=== PATIENT | male | born 1960 | race Caucasian/White ===

== ENCOUNTER 2018-03-25 08:23 | Outpatient (CLI) | payer OTHER | END 2018-03-25 08:24 | disposition home or self-care (01) | LOC: DTY/OP 08:23 | PROVIDERS: ATTEND Surgery | DX: G47.30 Sleep apnea, unspecified (principal); E11.9 Type 2 diabetes mellitus without complications; I10 Essential (primary) hypertension | CPT/HCPCS: 97802 ==

== ENCOUNTER 2018-04-04 15:36 | Outpatient (CLI) | payer OTHER ==
[2018-04-04 16:36] LABS: #Eosinphils 0.1 thou/uL (0.0-0.7); #Lymphocytes 2.1 thou/uL (1.20-3.40); #Monocytes 0.9 thou/uL (0.11-0.59); #Neutrophils 10.4 thou/uL (1.40-6.50); %Basophils 0.3 % (0.0-1.0); %Eosinophils 0.5 % (0.0-10.0); %Lymphocytes 15.8 % (21.0-51.0); %Monocytes 6.4 % (0.0-10.0); Hemoglobin 14.3 g/dL (14.0-18.0); Mean Corpuscular HGB CONC 32.7 g/dL (32.0-36.0); Mean Corpuscular Hemoglobin 29.8 pg (27.0-31.0); Mean Corpuscular Volume 91.1 fL (78.0-98.0); Mean Platelet Volume 7.2 fL (7.4-10.4); Platelet Count 289 thou/uL (130-400); Red Blood Cell (RBC) Count 4.79 mill/uL (4.70-6.10); White Blood Cell (WBC) Count 13.5 thou/uL (4.8-10.8)
[2018-04-04 16:48] LABS: Hemoglobin A1c 6.9 % (4.0-6.0)
[2018-04-04 17:00] LABS: ALT (SGPT) 34 U/L (8-55); AST (SGOT) 24 U/L (5-34); Albumin 4.2 g/dL (3.5-5.0); Alkaline Phosphatase 42 U/L (40-150); Anion Gap 14 mmol/L (10-20); BUN (Urea Nitrogen) 48 mg/dL (8.4-25.7); Bilirubin, Direct 0.2 mg/dL (0.1-0.3); Bilirubin, Total 0.4 mg/dL (0.2-1.2); Calc. Creatinine Clearance 0 mL/min (70-130); Calcium 10.1 mg/dL (7.8-10.44); Carbon Dioxide 24 mmol/L (22-29); Chloride 104 mmol/L (98-107); Estimated GFR-MDRD 62; Globulin 3.2 g/dL (2.4-3.5); Glucose 110 mg/dL (70-105); Potassium 4.3 mmol/L (3.5-5.1); Protein, Total 7.4 g/dL (6.0-8.3); Sodium 138 mmol/L (136-145)
--- NOTE | 2018-04-04 18:34 | RAD ---
PA AND LATERAL CHEST X-RAY: 04/04/2018 HISTORY: Preoperative evaluation. FINDINGS: The cardiac silhouette is borderline enlarged. The pulmonary vasculature is within normal limits. T here is mild elevation of the right hemidiaphragm. The lungs are clear. The osseous structures are intact. IMPRESSION: 1. No acute cardiopulmonary process. 2. Borderline cardiomegaly. POS: [facility]
== END 2018-04-04 15:37 | disposition home or self-care (01) ==
LOC: LABBT 15:36
PROVIDERS: ATTEND Surgery
DX: Z01.818 Encounter for other preprocedural examination (principal); E66.01 Morbid (severe) obesity due to excess calories
CPT/HCPCS: 71046; 80053; 80076; 83036; 85025; 93005; 93010

== ENCOUNTER 2018-04-14 09:03 | Inpatient (IN) | payer OTHER ==
[2018-04-04 15:59] VITALS: BMI 46.2
[2018-04-14] MEDS ORDERED: Heparin 5,000 UNITS/ML VIAL ONE (09:48)
[2018-04-14] MEDS ORDERED: CEFAZOLIN/Water 2 GM/20 ML SYRINGE ONE (09:48)
[2018-04-14] MEDS ORDERED: Ondansetron HCl/PF 4 MG/2 ML Vial ONE (11:30)
[2018-04-14] MEDS ORDERED: Lidocaine 1% PF 5 ML VIAL ONE (11:30)
[2018-04-14] MEDS ORDERED: Dexamethasone 20 MG/5 ML VIAL ONE (11:30)
[2018-04-14] MEDS ORDERED: Glycopyrrolate 0.2 MG/ML 5 ML SYRINGE ONE (11:30)
[2018-04-14] MEDS ORDERED: PROPOFOL 200 MG/20 ML VIAL ONE (11:30)
[2018-04-14] MEDS ORDERED: Ketorolac Tromethamine 30 MG/ML VIAL ONE (11:30)
[2018-04-14] MEDS ORDERED: Midazolam HCl 2 mg/2 ml Vial ONE (11:35)
[2018-04-14] MEDS ORDERED: Bupivacaine/Epinephrine 0.25% 30 ML VIAL ONE (11:51)
[2018-04-14] MEDS ORDERED: HYDROmorphone 2 MG/ML VIAL ONE (11:52)
[2018-04-14] MEDS ORDERED: Fentanyl 100 MCG/2 ML VIAL ONE ×2 (11:52→13:41)
[2018-04-14] MEDS ORDERED: Promethazine HCl 25 MG/ML VIAL SLOW IVP PRN (13:30)
[2018-04-14] MEDS ORDERED: Promethazine HCl 25 MG/ML VIAL IM PRN ×3 (13:30→14:59)
[2018-04-14] MEDS ORDERED: Ondansetron HCl/PF 4 MG/2 ML Vial IVP PRN ×3 (13:30→14:59)
[2018-04-14] MEDS ORDERED: HYDROmorphone 2 MG/ML VIAL SLOW IVP PRN (13:30)
[2018-04-14] MEDS ORDERED: PACU-Morphine 4MG/ML VIAL SLOW IVP PRN (13:30)
[2018-04-14] MEDS ORDERED: diphenhydrAMINE 25 MG CAP PO PRN (13:38)
[2018-04-14] MEDS ORDERED: fentaNYL Citrate/PF 2,000 MCG in Sodium Chloride 0.9% 60 ML IV PRN (13:38)
[2018-04-14] MEDS ORDERED: diphenhydrAMINE 50 MG/ML VIAL IVP PRN ×2 (13:38→14:59)
[2018-04-14] MEDS ORDERED: Zolpidem Tartrate 5 MG TAB PO PRN (13:38)
[2018-04-14] MEDS ORDERED: diphenhydrAMINE 50 MG/ML VIAL IM PRN (13:38)
[2018-04-14] MEDS ORDERED: Naloxone HCl 0.4 mg/ml Vial IV PRN (13:38)
[2018-04-14] MEDS ORDERED: Communication Order-Pharmacy FS SCH (13:45)
--- NOTE | 2018-04-14 13:54 | OP ---
DATE OF PROCEDURE: 04/14/2018 PREOPERATIVE DIAGNOSES: 1. Morbid obesity with body mass index of 47. 2. Diabetes mellitus type 2. 3. Hypertension. POSTOPERATIVE DIAGNOSES: 1. Morbid obesity with body mass index of 47. 2. Diabetes mellitus type 2. 3. Hypertension. PROCEDURE: 1. Laparoscopic sleeve gastrectomy with [place] staple line reinforcements and 38 [place] bougie. 2. EGD. SURGEON: Edis Rodriguez M.D. ANESTHESIA: General. ESTIMATED BLOOD LOSS: Minimal. COMPLICATIONS: None. SPECIMEN: Stomach. FINDINGS: Normal postoperative EGD. TECHNIQUE: The patient was taken to the operating room and placed supine on the table. After genera l anesthetic was obtained, the arms, legs were double strapped to bariatric table. His abdomen were shaved, prepped, and draped in a sterile fashion. Left subcostal 5-mm Optiview trocar was placed in the usual fashion, high flow pneumoperitoneum was obtained. Left and right abdominal 12-mm ports as well as a right subcostal 5 mm port were placed under direct visualization. A 5 mm incision was made at the xiphoid and Jamila was used to raise the liver off the GE junction. Short gastrics were t aken down mid body of stomach to the left leann of the diaphragm. Left leann, angle of His, fundus is completely dissected. Short gastrics were taken at a distance of 6 cm proximal to the pylorus. OG t ube was removed and 38 bougie was brought in and its tip left in the antrum of the stomach. Multiple loads of an [place] stapling device with [place] staple and reinforcements used to form the sleeve. Th e first fired to a distance 6 cm proximal to the pylorus angled up towards the incisura. Multiple lo ads then fired up along the bougie and stomach is completely transected at the angle of His. The sto mach was removed from left abdominal incision. This fascial defect was closed GraNee needle 0 Vicryl tie. EGD scope was passed into the esophagus, stomach to the level of duodenum without obstruction. There is no air leakage or bleeding on the staple line. EGD scope was used to compress it was pull ed and removed. There is no bleeding on the staple line and Nathansen removed under direct visualiza tion without bleeding. Both 12-mm port sites were closed in the fascia using GraNee needle 0 Vicryl tie. All ports are removed under camera visualization without bleeding. The pneumoperitoneum was le t down. All incisions were irrigated and closed using 4-0 Monocryl and Dermabond. The patient went to recovery in stable condition. All instrument counts, needle counts, lap counts were correct.
[2018-04-14] MEDS ORDERED: Hydrocodone-Acetamin 15 ML UDCUP PO PRN (14:59)
[2018-04-14] MEDS ORDERED: Dextrose 5% in Water 1,000 ML IV PRN (14:59)
[2018-04-14] MEDS ORDERED: Dextrose 50% Abboject 50 ML SYRINGE SLOW IVP PRN (14:59)
[2018-04-14] MEDS ORDERED: Acetaminophen 1,000 MG in Premix Bag 1 BAG IVPB SCH (14:59)
[2018-04-14] MEDS ORDERED: hydrALAZINE 20 MG/ML VIAL SLOW IVP PRN (14:59)
[2018-04-14] MEDS ORDERED: HumaLOG 300 UNITS/3 ML VIAL SC PRN (14:59)
[2018-04-14] MEDS: Ketorolac Tromethamine 30 MG/ML VIAL IVP SCH (18:41)
[2018-04-14] MEDS: Acetaminophen 1,000 MG in Premix Bag 1 BAG IVPB SCH (18:41)
[2018-04-14] MEDS: 1/2 NS w/KCL 20 mEq 1,000 ML IV SCH (18:46)
[2018-04-14] MEDS ORDERED: Cepastat Lozenges 1 LOZ PO PRN (19:29)
[2018-04-14] MEDS: Metoprolol Tartrate 50 MG TAB PO SCH (20:15)
[2018-04-14] MEDS ORDERED: Enoxaparin Sodium 40 MG/0.4 ML SYRINGE SC SCH (21:00)
[2018-04-15] MEDS: Ketorolac Tromethamine 30 MG/ML VIAL IVP SCH ×2 (00:39→06:00)
[2018-04-15] MEDS: Acetaminophen 1,000 MG in Premix Bag 1 BAG IVPB SCH ×2 (00:40→06:01)
[2018-04-15] MEDS: 1/2 NS w/KCL 20 mEq 1,000 ML IV SCH ×2 (03:00→09:41)
[2018-04-15 05:25] LABS: #Lymphocytes 1.7 thou/uL (1.20-3.40); #Neutrophils 9.5 thou/uL (1.40-6.50); %Basophils 0.4 % (0.0-1.0); %Eosinophils 0.3 % (0.0-10.0); %Lymphocytes 13.6 % (21.0-51.0); %Monocytes 8.4 % (0.0-10.0); %Neutrophils 77.2 % (42.0-75.0); Hemoglobin 12.1 g/dL (14.0-18.0); Mean Corpuscular HGB CONC 32.7 g/dL (32.0-36.0); Mean Corpuscular Hemoglobin 30.6 pg (27.0-31.0); Mean Corpuscular Volume 93.5 fL (78.0-98.0); Mean Platelet Volume 7.8 fL (7.4-10.4); Platelet Count 259 thou/uL (130-400); RBC Distribution Width 13.9 % (11.5-14.5); Red Blood Cell (RBC) Count 3.94 mill/uL (4.70-6.10); White Blood Cell (WBC) Count 12.3 thou/uL (4.8-10.8)
[2018-04-15 05:44] LABS: BUN (Urea Nitrogen) 29 mg/dL (8.4-25.7); Calc. Creatinine Clearance 86 mL/min (70-130); Calcium 8.4 mg/dL (7.8-10.44); Carbon Dioxide 19 mmol/L (22-29); Estimated GFR-MDRD 44; Glucose 84 mg/dL (70-105)
[2018-04-15 05:53] LABS: Anion Gap 16 mmol/L (10-20); Chloride 109 mmol/L (98-107); Potassium 4.5 mmol/L (3.5-5.1); Sodium 138 mmol/L (136-145)
[2018-04-15] MEDS ORDERED: Lisinopril 20 MG TAB PO SCH (09:00)
[2018-04-15] MEDS ORDERED: Pantoprazole 40 MG VIAL IVP SCH (09:00)
[2018-04-15] MEDS: Metoprolol Tartrate 50 MG TAB PO SCH (09:40)
[2018-04-15 12:01] VITALS: BP 152/72; TEMP 97.5
== END 2018-04-15 14:26 | disposition home or self-care (01) | DRG 621 ==
LOC: SURG A 09:03
PROVIDERS: ADMIT Surgery; ATTEND Surgery
PROC: 0DB64Z3 Excision of Stomach, Percutaneous Endoscopic Approach, Vertical (ICD-10-PCS; principal; 2018-04-14)
PROC: 0DJ08ZZ Inspection of Upper Intestinal Tract, Via Natural or Artificial Opening Endoscopic (ICD-10-PCS; 2018-04-14)
DX: E66.01 Morbid (severe) obesity due to excess calories (principal); Z68.42 Body mass index [BMI] 45.0-49.9, adult; E11.9 Type 2 diabetes mellitus without complications; I10 Essential (primary) hypertension; E78.00 Pure hypercholesterolemia, unspecified
CPT/HCPCS: 36415; 36416; 80048; 85025; 88307; 88312; 94760; C9113; J0131; J1100; J1170; J1644; J1650; J1885; J2001; J2250; J2405; J2704; J3010; J7050